=== PATIENT | male | born 1960 | race Caucasian/White ===

== ENCOUNTER 2019-10-20 08:15 | Emergency (ER) | payer BC ==
[2019-10-20] MEDS ORDERED: Ondansetron 4 MG/2 ML SDV IVPUSH ONE (08:29)
[2019-10-20] MEDS ORDERED: Sodium Chloride 0.9% 1,000 ML IV ONE (08:29)
[2019-10-20] MEDS ORDERED: HYDROmorphone 1 MG/ML Syringe IVPUSH ONE (08:51)
[2019-10-20] MEDS ORDERED: Metoclopramide 10 MG/2 ML SDV IVPUSH ONE (08:54)
[2019-10-20 09:10] LABS: CHLORIDE,CL 111 mmol/L (101-111); SODIUM,NA 142 mmol/L (135-145)
[2019-10-20] MEDS ORDERED: Ketorolac 30 MG/ML SDV IVPUSH ONE (09:17)
--- NOTE | 2019-10-20 10:06 | EDM.PDOC ---
"ED HPI GENERAL MEDICAL PROBLEM - General Chief Complaint: Flank Pain Stated Complaint: LEFT FLANK PAIN/VOMITING Time Seen by Provider: 10/20/19 08:30 Source of Information: Reports: Patient History Limitations: Reports: No Limitations - History of Present Illness INITIAL COMMENTS - FREE TEXT/NARRATIVE: ED with c/o left flank pain since early am, Vomited x 7. Feel like kidney stone. Typically has on right side. Last 8 years ago, esitimates 10-12 episodes in total. Had decreased incidence after eliminating [place], Recently started drinking it again. Unknown fever or chills, Flu type symptoms last week . left flank Pain Score (Numeric/FACES): 8 - Related Data Allergies Allergy/AdvReac Type Severity Reaction Status Date / Time Penicillins Allergy Intermediate Swelling Verified 10/20/19 08:31 Home Meds: Home Meds . [No Known Home Meds] 10/20/19 [History] Past Medical History HEENT History: Reports: Impaired Vision Cardiovascular History: Reports: None Respiratory History: Reports: Asthma Gastrointestinal History: Reports: GERD, GI Bleed Genitourinary History: Reports: Renal Calculus Musculoskeletal History: Reports: None Neurological History: Reports: None Psychiatric History: Reports: None Endocrine/Metabolic History: Reports: None Hematologic History: Reports: None Immunologic History: Reports: None Oncologic (Cancer) History: Reports: None Dermatologic History: Reports: None - Infectious Disease History Infectious Disease History: Reports: Shingles - Past Surgical History HEENT Surgical History: Reports: None Cardiovascular Surgical History: Reports: None Respiratory Surgical History: Reports: None GI Surgical History: Reports: None Male Surgical History: Reports: None Endocrine Surgical History: Reports: None Neurological Surgical History: Reports: None Musculoskeletal Surgical History: Reports: None Social & Family History - Family History Family Medical History: Noncontributory - Tobacco Use Smoking Status *Q: Never Smoker Second Hand Smoke Exposure: No - Caffeine Use Caffeine Use: Reports: Soda - Recreational Drug Use Recreational Drug Use: No ED ROS GENERAL - Review of Systems Review Of Systems: Comprehensive ROS is negative, except as noted in HPI. ED EXAM, RENAL/ - Physical Exam Exam: See Below Exam Limited By: No Limitations General Appearance: Alert, No Apparent Distress, Lethargic Eye Exam: Bilateral Eye: PERRL Ears: Normal External Exam, Normal Canal, Normal TMs Nose: Normal Inspection Throat/Mouth: Normal Inspection Head: Atraumatic, Normocephalic Neck: Normal Inspection, Non-Tender, Full Range of Motion Respiratory/Chest: No Respiratory Distress, Lungs Clear, Normal Breath Sounds Cardiovascular: Normal Peripheral Pulses, Regular Rate, Rhythm, No Edema GI/Abdominal: Normal Bowel Sounds, Soft, Non-Tender Back Exam: CVA Tenderness (L). No: CVA Tenderness (R), Paraspinal Tenderness, Vertebral Tenderness Extremities: Normal Inspection, Normal Range of Motion Neurological: Alert, Oriented, Normal Cognition Psychiatric: Normal Affect Skin Exam: Warm, Dry, Intact, Normal Color, No Rash Course - Vital Signs Last Recorded V/S: Last Vital Signs Temp 98.0 F 10/20/19 08:25 Pulse 68 10/20/19 08:25 Resp 16 10/20/19 08:25 BP 126/77 10/20/19 08:25 Pulse Ox 98 10/20/19 08:25 - Orders/Labs/Meds Labs: Laboratory Tests 10/20/19 10/20/19 10/20/19 Range/Units 08:32 08:32 08:32 WBC 5.2 (5.0-10.0) 10^3/uL RBC 4.96 (4.6-6.2) 10^6/uL Hgb 15.3 (14.0-18.0) g/dL Hct 43.8 (40.0-54.0) % MCV 88.3 (80-100) fL MCH 30.8 (27.0-34.0) pg MCHC 34.9 (33.0-35.0) g/dL Plt Count 155 (150-450) 10^3/uL Neut % (Auto) 76.9 H (42.2-75.2) % Lymph % (Auto) 17.0 L (20.5-50.1) % Gooding % (Auto) 4.8 (2-8) % Eos % (Auto) 1.1 (1.0-3.0) % Baso % (Auto) 0.2 (0.0-1.0) % Sodium 142 (135-145) mmol/L Potassium 4.0 (3.6-5.0) mmol/L Chloride 111 (101-111) mmol/L Carbon Dioxide 24.0 (21.0-31.0) mmol/L Anion Gap 11.0 BUN 12 (7-18) mg/dL Creatinine 1.2 (0.6-1.3) mg/dL Est Cr Clr Drug Dosing 64.13 mL/min Estimated GFR (MDRD) > 60 BUN/Creatinine Ratio 10.00 Glucose 120 H (74-105) mg/dL Lactic Acid 1.2 (0.5-2.0) mmol/L Calcium 8.9 (8.4-10.2) mg/dl Total Bilirubin 1.1 H (0.2-1.0) mg/dL AST 17 (10-42) IU/L ALT 19 (10-60) IU/L Alkaline Phosphatase 75 (42-121) IU/L Total Protein 6.4 L (6.7-8.2) g/dl Albumin 4.0 (3.2-5.5) g/dl Globulin 2.4 Albumin/Globulin Ratio 1.67 Urine Color (YELLOW) Urine Appearance (CLEAR) Urine pH (5.0-9.0) Ur Specific Jal (1.005-1.030) Urine Protein (NEGATIVE) Urine Glucose (UA) (NEGATIVE) Urine Ketones (NEGATIVE) Urine Occult Blood (NEGATIVE) Urine Nitrite (NEGATIVE) Urine Bilirubin (NEGATIVE) Urine Urobilinogen (0.2-1.0) mg/dL Ur Leukocyte Esterase (NEGATIVE) Urine RBC /HPF Urine WBC (0-5/HPF) /HPF Ur Epithelial Cells (NOT SEEN) /HPF Urine Bacteria (0-FEW/HPF) /HPF Urine Mucus (NOT SEEN) /LPF 10/20/19 Range/Units 09:09 WBC (5.0-10.0) 10^3/uL RBC (4.6-6.2) 10^6/uL Hgb (14.0-18.0) g/dL Hct (40.0-54.0) % MCV (80-100) fL MCH (27.0-34.0) pg MCHC (33.0-35.0) g/dL Plt Count (150-450) 10^3/uL Neut % (Auto) (42.2-75.2) % Lymph % (Auto) (20.5-50.1) % Gooding % (Auto) (2-8) % Eos % (Auto) (1.0-3.0) % Baso % (Auto) (0.0-1.0) % Sodium (135-145) mmol/L Potassium (3.6-5.0) mmol/L Chloride (101-111) mmol/L Carbon Dioxide (21.0-31.0) mmol/L Anion Gap BUN (7-18) mg/dL Creatinine (0.6-1.3) mg/dL Est Cr Clr Drug Dosing mL/min Estimated GFR (MDRD) BUN/Creatinine Ratio Glucose (74-105) mg/dL Lactic Acid (0.5-2.0) mmol/L Calcium (8.4-10.2) mg/dl Total Bilirubin (0.2-1.0) mg/dL AST (10-42) IU/L ALT (10-60) IU/L Alkaline Phosphatase (42-121) IU/L Total Protein (6.7-8.2) g/dl Albumin (3.2-5.5) g/dl Globulin Albumin/Globulin Ratio Urine Color Dark yellow (YELLOW) Urine Appearance Slightly cloudy (CLEAR) Urine pH 5.5 (5.0-9.0) Ur Specific Jal 1.025 (1.005-1.030) Urine Protein 30 H (NEGATIVE) Urine Glucose (UA) Negative (NEGATIVE) Urine Ketones Negative (NEGATIVE) Urine Occult Blood Large H (NEGATIVE) Urine Nitrite Negative (NEGATIVE) Urine Bilirubin Negative (NEGATIVE) Urine Urobilinogen 0.2 (0.2-1.0) mg/dL Ur Leukocyte Esterase Negative (NEGATIVE) Urine RBC 75-100 H /HPF Urine WBC Not seen (0-5/HPF) /HPF Ur Epithelial Cells Rare (NOT SEEN) /HPF Urine Bacteria Not seen (0-FEW/HPF) /HPF Urine Mucus Few H (NOT SEEN) /LPF Meds: Medications Discontinued Medications Generic Name Dose Route Start Last Admin Trade Name Freq PRN Reason Stop Dose Admin Hydromorphone HCl 1 mg 10/20/19 08:51 10/20/19 08:56 Dilaudid IVPUSH 10/20/19 08:52 1 mg ONETIME ONE Administration Sodium Chloride 1,000 mls @ 999 mls/hr 10/20/19 08:29 10/20/19 08:39 Normal Saline IV 10/20/19 09:29 999 mls/hr .BOLUS ONE Administration Ketorolac Tromethamine 30 mg 10/20/19 09:17 10/20/19 09:49 Toradol IVPUSH 10/20/19 09:18 30 mg ONETIME ONE Administration Metoclopramide HCl 10 mg 10/20/19 08:54 10/20/19 08:57 Reglan IVPUSH 10/20/19 08:55 10 mg ONETIME ONE Administration Ondansetron HCl 4 mg 10/20/19 08:29 10/20/19 08:39 Zofran IVPUSH 10/20/19 08:30 4 mg ONETIME ONE Administration - Radiology Interpretation Free Text/Narrative:: [facility] [place] [facility] Final Radiology Report Call: [phone] assistance Online chat: [email or web address] Name: SARAH KAPOOR Age: 59Years M Date: 10/20/2019 SSN: -- : [id number] Study: CT ABDOMEN/PELVIS WO Requesting Physician: ZULLY RAINEY Images: [id number] Addl Studies: Provided Clinical History: Contrast: Without Contrast Medium: Contrast Amount: Contrast Method: Page 1 of 2 PROCEDURE INFORMATION: Exam: CT Abdomen And Pelvis Without Contrast Exam date and time: 10/20/2019 9:28 AM Age: 59 years old Clinical indication: Abdominal pain; Patient HX: Left flank pain and vomiting. HX of kidney stones TECHNIQUE: Imaging protocol: Computed tomography of the abdomen and pelvis without contrast. Radiation optimization: All CT scans at this facility use at least one of these dose optimization techniques: automated exposure control; mA and/or kV adjustment per patient size (includes targeted exams where dose is matched to clinical indication); or iterative reconstruction. COMPARISON: No relevant prior studies available. FINDINGS: Lungs: Minimal dependent changes are present in the lung bases. Liver: Normal. No mass. Gallbladder and bile ducts: Normal. No calcified stones. No ductal dilation. Pancreas: Normal. No ductal dilation. Spleen: Normal. No splenomegaly. Adrenals: Normal. No mass. Kidneys and ureters: Mild left perinephric and periureteral stranding. No ureteral stone is identified. Findings could represent a recently passed stone or an ascending urinary tract infection. Stomach and bowel: Diverticulosis is present with no CT evidence of diverticulitis. Appendix: No evidence of appendicitis. Intraperitoneal space: Unremarkable. No free air. No significant fluid collection. Vasculature: Unremarkable. No abdominal aortic aneurysm. Lymph nodes: Unremarkable. No enlarged lymph nodes. SARAH KAPOOR | Final Radiology Report CONFIDENTIALITY STATEMENT This report is intended only for use by the referring physician, and only in accordance with law. If you received this in error, call [phone]. Page 2 of 2 Bladder: Unremarkable as visualized. Reproductive: Unremarkable as visualized. Bones/joints: Unremarkable. No acute fracture. Soft tissues: Unremarkable. IMPRESSION: 1. Mild left perinephric and periureteral stranding. No ureteral stone is identified. Findings could represent a recently passed stone or an ascending urinary tract infection. 2. Remainder of findings as described above. Thank you for allowing us to participate in the care of your patient. - Re-Assessments/Exams Free Text/Narrative Re-Assessment/Exam: Up to void, stated felt like he just passed stone. Urine strained with presence of small stone. Departure - Departure Time of Disposition: 10:06 Disposition: Home, Self-Care 01 Condition: Good Clinical Impression: Ureteric colic, Kidney stone on left side - Discharge Information *PRESCRIPTION DRUG MONITORING PROGRAM REVIEWED*: Yes *COPY OF PRESCRIPTION DRUG MONITORING REPORT IN PATIENT EMMANUEL: No Instructions: Renal Colic, [id number], Kidney Stones, [id number] Referrals: PCP,None [Primary Care Provider] - Forms: ED Department Discharge Additional Instructions: increase fluid intake decrease Mt Dew ingestion Zofran ODT 4mg every 6 hours as needed for nausea Toradol 10mg one every 8 hours as needed for severe pain follow up fever chills, worsening pain or nausea light activity today diet as tolerated Sepsis Event Note - Evaluation Sepsis Screening Result: No Definite Risk - Focused Exam Date Exam was Performed: 10/22/19 Time Exam was Performed: 03:03"
== END 2019-10-20 10:20 | disposition home or self-care (01) ==
LOC: DL.ED 08:15
DX: N20.2 Calculus of kidney with calculus of ureter (principal); K21.9 Gastro-esophageal reflux disease without esophagitis; Z88.0 Allergy status to penicillin; Z79.899 Other long term (current) drug therapy
CPT/HCPCS: 36415; 74176; 80053; 81001; 83605; 85025; 87040; 96361; 96374; 96375; 99284; J1170; J1885; J2405; J2765; J7030

== ENCOUNTER 2022-03-13 10:05 | Emergency (ER) | payer BC, OTHER ==
[2022-03-13] MEDS ORDERED: Ondansetron 4 MG/2 ML SDV IVPUSH ONE (10:40)
[2022-03-13] MEDS ORDERED: HYDROmorphone 0.5 MG/0.5 ML Syringe IVPUSH ONE ×2 (10:40→12:10)
[2022-03-13] MEDS ORDERED: Sodium Chloride 0.9% 10 ML Syringe FLUSH PRN (10:40)
[2022-03-13] MEDS ORDERED: Ketorolac 30 MG/ML SDV IM ONE (12:39)
== END 2022-03-13 13:17 | disposition home or self-care (01) ==
LOC: DL.ED 10:05
DX: S20.211A Contusion of right front wall of thorax, initial encounter (principal); K21.9 Gastro-esophageal reflux disease without esophagitis; Z88.0 Allergy status to penicillin; Z79.899 Other long term (current) drug therapy; W55.22XA Struck by cow, initial encounter
CPT/HCPCS: 71046; 71250; 73030; 96372; 96374; 96375; 99284; J1170; J1885; J2405; J3490

== ENCOUNTER 2022-04-11 09:05 | Emergency (ER) | payer OTHER ==
[2022-04-11] MEDS ORDERED: Sodium Chloride 0.9% 10 ML Syringe FLUSH PRN (09:37)
[2022-04-11] MEDS ORDERED: Ondansetron 4 MG/2 ML SDV IVPUSH ONE (09:37)
[2022-04-11] MEDS ORDERED: HYDROmorphone 0.5 MG/0.5 ML Syringe IVPUSH ONE (09:38)
[2022-04-11] MEDS ORDERED: Ketorolac 30 MG/ML SDV IVPUSH ONE (09:38)
[2022-04-11 11:53] LABS: ANION GAP 11.3 mEq/L (7-13)
== END 2022-04-11 12:23 | disposition home or self-care (01) ==
LOC: DL.ED 09:05
DX: M10.9 Gout, unspecified (principal); Z88.0 Allergy status to penicillin
CPT/HCPCS: 36415; 73620; 80053; 83605; 84550; 85025; 86140; 96374; 96375; 99283; J1170; J1885; J2405; J3490

== ENCOUNTER 2022-06-25 11:32 | Emergency (ER) | payer OTHER ==
[2022-06-25] MEDS ORDERED: Sodium Chloride 0.9% 10 ML Syringe FLUSH PRN (11:40)
[2022-06-25 12:20] LABS: ANION GAP 13.3 mEq/L (7-13)
[2022-06-25] MEDS ORDERED: Sodium Chloride 0.9% 1,000 ML IV ONE (12:55)
[2022-06-25] MEDS ORDERED: Temazepam 15 MG Cap ONE (13:08)
== END 2022-06-25 13:15 | disposition home or self-care (01) ==
LOC: DL.ED 11:32
DX: F41.9 Anxiety disorder, unspecified (principal); Z88.0 Allergy status to penicillin
CPT/HCPCS: 36415; 80053; 83690; 83735; 84484; 85025; 93005; 99283

== ENCOUNTER 2022-06-27 03:30 | Emergency (ER) | payer OTHER ==
[2022-06-27] MEDS ORDERED: Ondansetron 4 MG/2 ML SDV IVPUSH ONE (04:21)
[2022-06-27] MEDS ORDERED: Pantoprazole 40 MG Vial IVPUSH ONE (04:36)
[2022-06-27] MEDS ORDERED: Sodium Chloride 0.9% 1,000 ML IV ONE (04:40)
[2022-06-27] MEDS ORDERED: Metoclopramide 10 MG/2 ML SDV IVPUSH ONE (05:24)
[2022-06-27] MEDS ORDERED: LORazepam 2 MG/ML SDV IVPUSH ONE (05:26)
[2022-07-24 10:55] LABS: ANION GAP 12.7 mEq/L (7-13); CHLORIDE,CL 105 mmol/L (98-107); ESTIMATED GFR 65 mL/min (>=60); SODIUM,NA 141 mmol/L (136-145)
[2022-07-24 10:58] LABS: AMPHETAMINES,URINE NEGATIVE (NEGATIVE); BARBITURATES,URINE NEGATIVE (NEGATIVE); BENZODIAZEPINE,URINE POSITIVE (NEGATIVE); MDMA (ECSTASY), URINE NEGATIVE (NEGATIVE); METHADONE,URINE NEGATIVE (NEGATIVE); METHAMPHETAMINES,URINE NEGATIVE (NEGATIVE); OPIATES,URINE NEGATIVE (NEGATIVE); OXYCODONE,URINE NEGATIVE (NEGATIVE); PHENCYCLIDINE,URINE NEGATIVE (NEGATIVE); TCA,URINE NEGATIVE (NEGATIVE)
== END 2022-06-27 05:33 | disposition home or self-care (01) ==
LOC: DL.ED 03:30
DX: F41.9 Anxiety disorder, unspecified (principal); R11.10 Vomiting, unspecified
CPT/HCPCS: 36415; 71045; 80053; 80305; 80307; 82150; 83605; 83690; 83880; 84443; 84484; 85025; 85379; 87040; 87635; 96361; 96374; 96375; 99285; C9113; J2060; J2405; J2765; J7030; U0002